=== PATIENT | male | born 1990 ===

== ENCOUNTER 2020-09-10 08:54 | Emergency (ER) | payer OTHER ==
[~2020-09-10] VITALS: Ht 167.6 cm; Wt 68.0 kg
[2020-09-10] MEDS ORDERED: OXYBUTYNIN CHLO15 MG PO (09:14)
[2020-09-10] MEDS ORDERED: PERCOCET 10-321 EACH PO (09:15)
[2020-09-10] MEDS ORDERED: PERCOCET 5-3251 EACH PO (09:40)
== END 2020-09-10 09:48 | disposition home or self-care (01) ==
LOC: ER 08:54
DX: R31.9 Hematuria, unspecified (principal)